=== PATIENT | female | born 1985 ===

== ENCOUNTER 2020-09-06 23:30 | Emergency (ER) | payer SELFPAY ==
--- NOTE | 2020-09-07 01:11 | EDPHYS ---
Physician Documentation [facility] Name: Kely Roth Age: 35 yrs Sex: Female : 1985 Arrival Date: 09/06/2020 Time: 23:35 Bed 16 Private MD: ED Physician Hugo Mckeon HPI: 09/07 00:52 This 35 yrs old Female presents to ER via Unassigned with complaints of Dental cp Infection. 00:53 Patient is a resident at [facility] and reports history of dental caries cp and possible abscess. Patient requests note to be released to go to [place] and follow-up with dentist who does not require insurance. Patient reports she is currently taking oral clindamycin. Historical: - Allergies: 00:39 No Known Allergies; jb4 - Home Meds: 00:39 Strattera oral oral [Active]; Bupropion Oral [Active]; atomoxetine oral oral [Active]; jb4 pro air [Active]; Augmentin 875-125 mg Oral tab [Active]; Clindamycin Oral [Active]; - PMHx: 00:39 Asthma; hypoglycemia; jb4 - PSHx: 00:39 lymphnodes; Tonsillectomy; jb4 - Immunization history:: Adult Immunizations up to date. - Social history:: Smoking status: Patient reports the use of cigarette tobacco products, <1/2PPD. ROS: 01:00 Constitutional: Negative for body aches, chills, fever, poor PO intake. cp 01:00 Eyes: Positive for blurry vision, Negative for discharge, pain, redness. 01:00 ENT: Positive for dental caries. 01:00 Cardiovascular: Negative for chest pain, palpitations. 01:00 Respiratory: Negative for cough, shortness of breath, wheezing. 01:00 Abdomen/GI: Negative for abdominal pain, nausea, vomiting, and diarrhea. 01:00 Neuro: Negative for altered mental status, headache, loss of consciousness, syncope, weakness. 01:00 All other systems are negative. Exam: 01:04 Head/Face: Normocephalic, atraumatic. cp 01:04 Constitutional: The patient appears in no acute distress, alert, awake, non-toxic, well developed, well nourished. 01:04 Eyes: Periorbital structures: appear normal, Conjunctiva: normal, no exudate, no injection, Lids and lashes: appear normal, bilaterally. 01:04 ENT: External ear(s): are unremarkable, Nose: is normal, Posterior pharynx: Airway: no evidence of obstruction, patent, Dental exam: abscess, is not appreciated, dental caries, that is severe, diffusely, fractured teeth are noted, diffusely, missing teeth, diffusely, pain, is not appreciated. 01:04 Neck: Lymph nodes: no appreciated lymphadenopathy. 01:04 Chest/axilla: Inspection: normal. 01:04 Cardiovascular: Rate: normal. 01:04 Respiratory: the patient does not display signs of respiratory distress, Respirations: normal. Vital Signs: 00:39 BP 117 / 67; Pulse 89; Resp 18; Temp 98.1(O); Pulse Ox 100% on R/A; Weight 63.5 kg (R); jb4 Height 5 ft. 11 in. (180.34 cm) (R); Pain 0/10; 00:39 Body Mass Index 19.53 (63.50 kg, 180.34 cm) jb4 Visual Acuity: 01:21 Left Eye Pupil size 4 mm, Normal, React To Light, Reactive To Accomodation; Right Eye jb4 Pupil size 4 mm, Normal, React To Light, Reactive To Accomodation; Both Eyes Visual acuity 20/200; Without Lenses; Pt reports being unable to read any level of the chart with one eye closed on either size. Provider notified. MDM: 01:11 Patient medically screened. cp 01:11 Data reviewed: vital signs, nurses notes. cp Administered Medications: No medications were administered Disposition: 01:15 Chart complete. cp Disposition: 09/07/20 01:11 Discharged to Home as Medical Screen. Impression: Dental caries. - Condition is Stable. - Discharge Instructions: Dental Caries, Adult. - Medication Reconciliation Form, Thank You Letter, Antibiotic Education, Prescription Opioid Use, Blank Diagnosis Outline form. - Follow up: Private Physician; When: 1 - 2 days; Reason: Recheck today's complaints. - Problem is an ongoing problem. - Symptoms are unchanged. Addendum: 09/22/2020 05:10 Co-signature as Attending Physician, Hugo Mckeon MD I agree with the assessment and t w4 plan of care. Signatures: Drew Moulton PA PA cp Bryson, James, RN RN jb4 Hugo Mckeon MD MD tw4 Corrections: (The following items were deleted from the chart) 09/07 00:53 00:52 This 35 yrs old Female presents to ER via Unassigned with complaints of Abscess. cp cp 01:21 01:11 09/07/2020 01:11 Discharged to Home as Medical Screen. Impression: Dental caries. jb4 Condition is Stable. Forms are Blank Diagnosis Outline, Medication Reconciliation Form, Thank You Letter, Antibiotic Education, Prescription Opioid Use. Follow up: Private Physician; When: 1 - 2 days; Reason: Recheck today's complaints. Problem is an ongoing problem. Symptoms are unchanged. cp
--- NOTE | 2020-09-07 01:11 | ER ---
Nurse's Notes [facility] Name: Kely Roth Age: 35 yrs Sex: Female : 1985 Arrival Date: 09/06/2020 Time: 23:35 Bed 16 Private MD: Diagnosis: Dental caries Presentation: 09/07 00:39 Chief complaint: Chief complaint: Patient states: I have abscess on both sides of my jb4 teeth. I have been to the dentist already but cannot afford to have them pulled. I am waiting to go see my free dentist in [place]. I have been having blurry vision since Monday. 00:39 Coronavirus screen: Client denies travel out of the [place] in the last 14 days. At this jb4 time, the client does not indicate any symptoms associated with coronavirus-19. Ebola Screen: No symptoms or risks identified at this time. Initial Sepsis Screen: Does the patient meet any 2 criteria? No. Patient's initial sepsis screen is negative. Does the patient have a suspected source of infection? No. Patient's initial sepsis screen is negative. Risk Assessment: Do you want to hurt yourself or someone else? Patient reports no desire to harm self or others. Onset of symptoms was September 07, 2020. Transition of care: patient was not received from another setting of care. 00:39 Method Of Arrival: Ambulatory jb4 00:39 Acuity: ALPHONSE 3 jb4 Historical: - Allergies: 00:39 No Known Allergies; jb4 - Home Meds: 00:39 Strattera oral oral [Active]; Bupropion Oral [Active]; atomoxetine oral oral [Active]; jb4 pro air [Active]; Augmentin 875-125 mg Oral tab [Active]; Clindamycin Oral [Active]; - PMHx: 00:39 Asthma; hypoglycemia; jb4 - PSHx: 00:39 lymphnodes; Tonsillectomy; jb4 - Immunization history:: Adult Immunizations up to date. - Social history:: Smoking status: Patient reports the use of cigarette tobacco products, <1/2PPD. Screenin:39 Abuse screen: Denies threats or abuse. Nutritional screening: No deficits noted. jb4 Tuberculosis screening: No symptoms or risk factors identified. Fall Risk None identified. Assessment: 00:39 General: Appears in no apparent distress. comfortable, Behavior is calm, cooperative. jb4 Pain: Denies pain. Neuro: Level of Consciousness is awake, alert, obeys commands, Oriented to person, place, time, situation. Cardiovascular: Patient's skin is warm and dry. Respiratory: Airway is patent Respiratory effort is even, unlabored. GI: No signs and/or symptoms were reported involving the gastrointestinal system. : No signs and/or symptoms were reported regarding the genitourinary system. EENT: Pt reports LINDA lower abscess . Derm: Skin is intact, Skin is pink, warm \T\ dry. Musculoskeletal: Circulation, motion, and sensation intact. Range of motion: intact in all extremities. Vital Signs: 00:39 BP 117 / 67; Pulse 89; Resp 18; Temp 98.1(O); Pulse Ox 100% on R/A; Weight 63.5 kg (R); jb4 Height 5 ft. 11 in. (180.34 cm) (R); Pain 0/10; 00:39 Body Mass Index 19.53 (63.50 kg, 180.34 cm) jb4 Visual Acuity: 01:21 Left Eye Pupil size 4 mm, Normal, React To Light, Reactive To Accomodation; Right Eye jb4 Pupil size 4 mm, Normal, React To Light, Reactive To Accomodation; Both Eyes Visual acuity 20/200; Without Lenses; Pt reports being unable to read any level of the chart with one eye closed on either size. Provider notified. ED Course: 09/06 23:35 Patient arrived in ED. bp1 09/07 00:39 Arm band placed on right wrist. jb4 00:45 Drew Moulton PA is PHCP. cp 00:45 Hugo Mckeon MD is Attending Physician. cp 00:58 Triage completed. jb4 01:02 Taqueria Rene, RN is Primary Nurse. jb4 01:21 Patient has correct armband on for positive identification. Bed in low position. Call jb4 light in reach. Side rails up X 1. 01:21 No provider procedures requiring assistance completed. Patient did not have IV access jb4 during this emergency room visit. Administered Medications: No medications were administered Outcome: 01:11 Discharge ordered by . cp 01:21 Medical screen evaluation completed per provider. Patient declined treatment. jb4 01:21 Condition: stable 01:21 Following a medical screening exam, the patient was provided information regarding jb4 alternative care sites and resources available per registration personnel. 01:21 Patient left the ED. jb4 Signatures: Drew Moulton PA PA cp Bryson, James, RN RN jb4 Obdulia Oh bp1 Corrections: (The following items were deleted from the chart) 00:58 00:55 Chief complaint: jb4 jb4
[2020-09-07 01:27] VITALS: BP 117/67; TEMP 98.1; O2SAT 100
== END 2020-09-07 01:21 | disposition home or self-care (01) ==
LOC: ER 23:30
DX: K02.9 Dental caries, unspecified (principal); J45.909 Unspecified asthma, uncomplicated; F17.210 Nicotine dependence, cigarettes, uncomplicated
CPT/HCPCS: 99281